=== PATIENT | female | born 1955 | race Caucasian/White ===

== ENCOUNTER 2018-01-14 16:49 | Emergency (ER) | payer BC ==
[2018-01-14 17:06] VITALS: BP 153/83; PULSE 85; TEMP 98; BMI 29.0
--- NOTE | 2018-01-14 17:10 | PDOC ---
History of Present Illness - General Chief Complaint: Lightheaded Stated Complaint: VERTIGO Time Seen by Provider: 01/14/18 17:10 - History of Present Illness Initial Comments: 62 year old female with PMH of vertigo, headaches, and HLD presenting with continuous headache and vertiginous symptoms for the past three days. Patient states that she has typically gets vertigo flares once a year but has had three this year so far. She takes meclizine with only mild relief and a lot of drowsiness. Denies any fevers, chills, vomiting, diarrhea, or other symptoms. 01/14/18 18:37 Past History - Past Medical History Allergies/Adverse Reactions: Allergies Allergy/AdvReac Type Severity Reaction Status Date / Time No Known Allergies Allergy Verified 08/01/13 14:47 Home Medications: Ambulatory Orders Meclizine HCl 25 mg PO Q4H PRN #120 tablet 01/14/18 Meclizine HCl [Antivert -] 25 mg PO TID PRN 01/14/18 Pravastatin Sodium [Pravachol (Nf)] 40 mg PO Q48H 01/14/18 Anemia: No Asthma: No Cancer: No Cardiac Disorders: No CVA: No COPD: No CHF: No Dementia: No Diabetes: No GI Disorders: Yes (OCCASIONAL HEARTBURN-NO MEDS) Disorders: No HTN: No Hypercholesterolemia: No Liver Disease: No Seizures: No Thyroid Disease: No Other medical history: VERTIGO - Surgical History Abdominal Surgery: No Appendectomy: No Cardiac Surgery: No Cholecystectomy: No Lung Surgery: No Neurologic Surgery: Yes (CERVICAL DISCECTOMY 2012) Orthopedic Surgery: Yes (RIGHT KNEE PATELLA FX REPAIR 1987/LEFT CARPAL TUNNEL 2005/CERVICAL 2009) - Suicide/Smoking/Psychosocial Hx Smoking History: Never smoked Have you smoked in the past 12 months: No Hx Alcohol Use: No Drug/Substance Use Hx: No Substance Use Type: None Hx Substance Use Treatment: No Review of Systems - Review of Systems Constitutional: No: Chills, Diaphoresis, Fever HEENTM: No: Tearing, Recent change in vision, Double Vision Respiratory: No: Shortness of Breath, Wheezing Cardiac (ROS): No: Chest Pain, Edema, Irregular Heart Rate ABD/GI: No: Diarrhea, Nausea, Vomiting : No: Burning, Dysuria, Discharge Integumentary: No: Bruising, Dryness, Erythema, Lesions, Lumps *Physical Exam - Vital Signs Last Vital Signs Temp Pulse Resp BP Pulse Ox 98.0 F 85 16 153/83 100 01/14/18 16:50 01/14/18 16:50 01/14/18 16:50 01/14/18 16:50 01/14/18 16:50 ED Treatment Course - LABORATORY CBC & Chemistry Diagram: 01/14/18 18:05 01/14/18 18:05 *DC/Admit/Observation/Transfer Diagnosis at time of Disposition: Vertigo - Discharge Dispostion Disposition: HOME Condition at time of disposition: Good - Prescriptions Prescriptions: Meclizine HCl 25 mg PO Q4H PRN #120 tablet PRN Reason: Vertigo - Referrals Referrals: Suzy Hopkins MD [Primary Care Provider] - - Patient Instructions Additional Instructions: Take your meclizine as perscribed. Return to the emergency department immediately with ANY new, persistent or worsening symptoms. Continue any medications as previously prescribed by your physician. You should follow up with your primary doctor as soon as possible regarding today's emergency department visit. . Please make sure your doctor reviews the results of your emergency evaluation. Thank you for coming to the Emergency Department today for your care. It was a pleasure to see you today. Please note that your evaluation is INCOMPLETE until you follow-up with your doctor. - Post Discharge Activity Forms/Work/School Notes: Back to Work
[2018-01-14] MEDS ORDERED: ACETAMINOPHEN 1000 MG/100 ML VIAL (NON FORMULARY) IVPB ONE (18:37)
[2018-01-14] MEDS ORDERED: SODIUM CHLORIDE 0.9% 500 ML INFUS.BAG IV ONE (18:37)
[2018-01-14] MEDS ORDERED: diazePAM 5 MG TABLET PO ONE (18:44)
[2018-01-14] MEDS ORDERED: METOCLOPRAMIDE HCL INJECTION 10 MG/2 ML VIAL IVPB ONE (18:44)
--- NOTE | 2018-01-14 18:45 | PDOC ---
Attending Attestation - Resident Resident Name: Jacob Auguste - ED Attending Attestation I have performed the following: I have examined & evaluated the patient, The case was reviewed & discussed with the resident, I agree w/resident's findings & plan, Exceptions are as noted - HPI HPI: 01/14/18 19:24 Patient is a 62 year old female with a PMHx of headaches, vertigo, HLD, left ear eustachian tube dysfunction (w/stent placement in left ear), abdomen althoughwho presents with 3 days of worsening vertigo, nausea, and headache. Patient states that on Sunday she began experiencing a vertigo attack, which she states that she gets on occasion. She states that she took some Meclizine which makes her drowsy and improved her symptoms somewhat. On Sunday her symptoms worsened to the point that she considered coming to the ER however she held off. Sunday she states that she experienced the same worsening headache and vertigo and she states she took Meclizine last night. This morning she began experiencing a headache which she describes as a gradual onset, very bad "clamp-like sensation at the b/l temporal region. She states that this is unusual for her since her headaches are usually located b/l occipital. She admits to some nausea, but denies vomit. She also admits to a decreased appetite and is afraid to eat because she is afraid of vomiting. She states that she has had a lot of ear infections in the past and had a stent placement in her left ear for drainage. Denies focal numbness/weakness. Denies any recent diarrhea, chest pain, shortness of breath, fever, chills, neck stiffness. FMHx: Brother - past away at young age from a cerebral hemorrhage. PCP: Suzy Hopkins - Physicial Exam PE: 01/14/18 19:25 GENERAL: Awake, alert, and fully oriented, in no acute distress HEAD: No signs of trauma EYES: PERRLA, EOMI, sclera anicteric, conjunctiva clear. VF full. No nystagmus. ENT: Auricles normal inspection, hearing grossly normal, nares patent, oropharynx clear without exudates. Moist mucosa NECK: Normal ROM, supple, no lymphadenopathy, JVD, or masses LUNGS: Breath sounds equal, clear to auscultation bilaterally. No wheezes, and no crackles HEART: Regular rate and rhythm, normal S1 and S2, no murmurs, rubs or gallops ABDOMEN: Soft, nontender, normoactive bowel sounds. No guarding, no rebound. No masses EXTREMITIES: Normal range of motion, no edema. No clubbing or cyanosis. No cords , erythema, or tenderness BACK: No midline spinal tenderness in cervical/thoracic/lumbar region NEUROLOGICAL: Normal speech, cranial nerves intact, negative pronator drift, 5/ 5 strength in all 4 extremities, normal sensation to light touch in all 4 extremities, normal cerebellar exam, unstable gait, normal reflexes and tone. Room spinning dizziness inducible by moving head to the left. SKIN: Warm, Dry, normal turgor, no rashes or lesions noted. - Medical Decision Making 01/14/18 19:45 62yo F with MMP including vertigo presents with vertigo that isn't responding to meclizine. On exam, dizziness is reproducible with head movements and resolves with lying flat. Initially pt was treated with IV acetaminophen, fluid. On re-eval, pt with mild improvemnt. Added reglan and valium. If still mild imrpovement, will consider MRI to eval for central causes, although neuro exam remains non focal at this time. Pt aware of plan. Pt signed out to overnight attending for further mgmt/dispo.
[2018-01-14] MEDS ORDERED: diazePAM 5 MG TABLET ONE (18:59)
[2018-01-14] MEDS ORDERED: ACETAMINOPHEN INJECTION 100 ML IVPB ONE (18:59)
[2018-01-14 19:01] LABS: ALK PHOS 63 U/L (32-92); ANION GAP 7 MMOL/L (8-16); BILIRUBIN,TOTAL 0.7 mg/dl (0.2-1.0); BLOOD UREA NITROGEN 9 mg/dl (7-18); CALCIUM 9.4 mg/dl (8.4-10.2); CHLORIDE 103 mmol/L (98-107); CO2 27 mmol/L (22-28); CREATININE 0.8 mg/dl (0.6-1.3); GLUCOSE,RANDOM 102 mg/dl (74-106); POTASSIUM 4.8 mmol/L (3.5-5.1); SGOT/AST 23 U/L (10-42); SGPT/ALT 19 U/L (10-40); SODIUM 137 mmol/L (136-145); TOT PROT 7.1 g/dl (6.4-8.3)
[2018-01-14 19:05] LABS: INR 0.98 (0.82-1.09)
[2018-01-14 19:08] LABS: BASO % 0.5 % (0-2.0); EOS % 1.4 % (0-4.5); HEMOGLOBIN 13.7 GM/dl (10.7-15.3); LYMPH % 23.2 % (8-40); MCH 28.9 pg (25.7-33.7); MCHC 32.5 g/dl (32.0-36.0); MEAN CELL VOLUME 88.7 fl (80-96); MEAN PLT VOLUME 8.9 fl (7.5-11.1); MONO % 4.5 % (3.8-10.2); NEUT % 70.4 % (42.8-82.8); PLATELET COUNT 252 K/MM3 (134-434); RBC 4.74 M/mm3 (3.60-5.2); WHITE BLOOD COUNT 6.6 K/mm3 (4.0-10.8)
--- NOTE | 2018-01-14 20:59 | PDOC ---
*Physical Exam - Vital Signs Last Vital Signs Temp Pulse Resp BP Pulse Ox 98.0 F 85 16 153/83 100 01/14/18 16:50 01/14/18 16:50 01/14/18 16:50 01/14/18 16:50 01/14/18 16:50 ED Treatment Course - LABORATORY CBC & Chemistry Diagram: 01/14/18 18:05 01/14/18 18:05 - ADDITIONAL ORDERS Additional order review: Laboratory Results 01/14/18 01/14/18 18:05 18:05 PT with INR 11.0 INR 0.98 Sodium 137 Potassium 4.8 Chloride 103 Carbon Dioxide 27 Anion Gap 7 L BUN 9 Creatinine 0.8 Creat Clearance w eGFR > 60 Random Glucose 102 Calcium 9.4 Total Bilirubin 0.7 AST 23 ALT 19 Alkaline Phosphatase 63 Total Protein 7.1 Albumin 4.0 01/14/18 18:05 RBC 4.74 MCV 88.7 MCHC 32.5 RDW 12.0 MPV 8.9 Neutrophils % 70.4 Lymphocytes % 23.2 Monocytes % 4.5 Eosinophils % 1.4 Basophils % 0.5 - Medications Given in the ED: ED Medications Discontinued Medications Generic Name Dose Route Start Last Admin Trade Name Freq PRN Reason Stop Dose Admin Acetaminophen 1,000 mg 01/14/18 18:37 01/14/18 19:10 Ofirmev Injection - IVPB 01/14/18 18:38 1,000 mg ONCE ONE Administration Diazepam 5 mg 01/14/18 18:44 01/14/18 19:02 Valium - PO 01/14/18 18:45 5 mg ONCE ONE Administration Metoclopramide HCl 10 mg 01/14/18 18:44 01/14/18 19:07 Reglan Injection - IVPB 01/14/18 18:45 10 mg ONCE ONE Administration Sodium Chloride 1,000 ml 01/14/18 18:37 01/14/18 19:05 Normal Saline - IV 01/14/18 18:38 1,000 ml ONCE ONE Administration Progress Note - Progress Note Progress Note: Care of this patient was transferred to from Dr. Morales at 19:00. Pt has a h /o vertigo and comes in c/o vertigo. Pt given meclizine, valium, and reglan will reassess at 9pm and if pt improved and able to ambulate she will be discharged and follow up with her PMD. reassessment: pt improved and able to ambulate with minimal symptoms. Pt discharged home will follow up with her neurologist. *DC/Admit/Observation/Transfer Diagnosis at time of Disposition: Vertigo - Discharge Dispostion Disposition: HOME Condition at time of disposition: Good Decision to Admit order: No - Referrals Referrals: Suzy Hopkins MD [Primary Care Provider] - - Patient Instructions Additional Instructions: Take your meclizine as perscribed. Return to the emergency department immediately with ANY new, persistent or worsening symptoms. Continue any medications as previously prescribed by your physician. You should follow up with your primary doctor as soon as possible regarding today's emergency department visit. . Please make sure your doctor reviews the results of your emergency evaluation. Thank you for coming to the Emergency Department today for your care. It was a pleasure to see you today. Please note that your evaluation is INCOMPLETE until you follow-up with your doctor. - Post Discharge Activity Forms/Work/School Notes: Back to Work
[2018-01-14] MEDS ORDERED: diphenhydrAMINE HCL 12.5 MG/5 ML UNIT-DOSE CUPS PO ONE (21:04)
[2018-01-14] MEDS ORDERED: DEXAMETHASONE LIQUID 0.5 MG/5 ML 240 ML BULK BOTTLE PO ONE (21:04)
== END 2018-01-14 21:14 | disposition home or self-care (01) ==
LOC: FER 16:49
PROC: 3E033NZ Introduction of Analgesics, Hypnotics, Sedatives into Peripheral Vein, Percutaneous Approach (ICD-10-PCS; principal; 2018-01-14)
PROC: 3E033GC Introduction of Other Therapeutic Substance into Peripheral Vein, Percutaneous Approach (ICD-10-PCS; 2018-01-14)
PROC: 3E0337Z Introduction of Electrolytic and Water Balance Substance into Peripheral Vein, Percutaneous Approach (ICD-10-PCS; 2018-01-14)
DX: R42 Dizziness and giddiness (principal)
CPT/HCPCS: 36415; 70450-TC; 80053; 85025; 85610; 99283-25; J0131

== ENCOUNTER 2020-03-23 04:46 | Day surgery (SDC) | payer BC ==
[2020-03-22 17:25] VITALS: BMI 31.1
[2020-03-23] MEDS ORDERED: ONDANSETRON 4 MG/2 ML VIAL IVPUSH PRN ×2 (08:46→11:34)
[2020-03-23] MEDS ORDERED: oxyCODONE HCL 5 MG TABLET PO PRN ×2 (08:46→11:34)
[2020-03-23] MEDS ORDERED: LACTATED RINGERS SOLUTION 1,000 ML IV SCH (09:00)
[2020-03-23] MEDS ORDERED: PROPOFOL 20 ML ONE (10:53)
[2020-03-23] MEDS ORDERED: MIDAZOLAM HCL 2 MG/2 ML SINGLE DOSE VIAL ONE (10:53)
[2020-03-23] MEDS ORDERED: DEXAMETHASONE SOD PHOSPHATE 4 MG/1 ML VIAL ONE (10:54)
[2020-03-23] MEDS ORDERED: LIDOCAINE HCL/PF 2% SDV 5ML VIAL ONE (10:54)
[2020-03-23] MEDS ORDERED: KETOROLAC TROMETHAMINE 30 MG/1 ML VIAL ONE (10:54)
[2020-03-23] MEDS ORDERED: BUPIVACAINE HCL/PF 0.25% (2.5MG/ML) 10 ML VIAL ONE (11:33)
[2020-03-23] MEDS ORDERED: IBUPROFEN 800 MG/8 ML IJ IVPB PRN (11:34)
[2020-03-23] MEDS ORDERED: IBUPROFEN 600 MG TABLET (FP) PO PRN (11:34)
[2020-03-23] MEDS ORDERED: BENZOIN/ALOE VERA/STORAX/TOLU 58 ML BOTTLE ONE (11:39)
[2020-03-23] MEDS ORDERED: ELECTROLYTE-148 SOLN 1,000 ML IV SCH (11:45)
[2020-03-23] MEDS ORDERED: HYDROmorphone HCl 2 MG/ML VIAL ONE (12:09)
[2020-03-23] MEDS ORDERED: DESFLURANE GAS 240 ML BOTTLE IH ONE (12:22)
[2020-03-23] MEDS ORDERED: GLYCOPYRROLATE 0.2 MG/1 ML VIAL ONE (12:58)
[2020-03-23] MEDS ORDERED: NEOSTIGMINE METHYLSULFATE 0.5 MG/ML - 10 ML MDV ONE (12:58)
[2020-03-23] MEDS ORDERED: BUPIVACAINE HCL/PF 0.5% (5 MG/ML) 30 ML VIAL IJ ONE ×2 (13:04)
[2020-03-23] MEDS ORDERED: oxyCODONE HCL 5 MG TABLET ONE (15:29)
[2020-03-23 15:37] VITALS: TEMP 97
[2020-03-23 16:51] VITALS: BP 107/52; PULSE 70
== END 2020-03-23 17:30 | disposition home or self-care (01) ==
LOC: JASU-SURG 04:46 → EDSTATUS 12:00 → JASU-SURG 17:30
PROVIDERS: ATTEND Obstetrics & Gynecology
PROC: 0UB74ZZ Excision of Bilateral Fallopian Tubes, Percutaneous Endoscopic Approach (ICD-10-PCS; 2020-03-23)
PROC: 0UB24ZZ Excision of Bilateral Ovaries, Percutaneous Endoscopic Approach (ICD-10-PCS; principal; 2020-03-23 11:00)
DX: N83.202 Unspecified ovarian cyst, left side (principal); N83.201 Unspecified ovarian cyst, right side
CPT/HCPCS: 87070; 87075; 87205; 88307-TC; 94760